=== PATIENT | female | born 1980 | race Caucasian/White ===

== ENCOUNTER 2017-03-05 05:17 | Observation (INO) ==
[2017-03-05] MEDS ORDERED: Ringers Solution, Lactated 1,000 ML IVC ONE (05:25)
[2017-03-05] MEDS ORDERED: Ringers Solution, Lactated 1,000 ML IVC SCH (05:30)
--- NOTE | 2017-03-05 05:41 | OB/GYN Progress Note ---
Date of Encounter: 03/05/17 Time of Encounter: 05:29 - Assessment and Plan (1) Vaginal bleeding during , antepartum Current Visit: Yes Status: Acute Plan: - CBC and fibrinogen - 1 L bolus of LR - Celestone 12mg IV once - PIH labs as patient's BP mildly elevated - [facility] accepted [facility] for vaginal bleeding at 23 weeks gestation. Will transfer in an ALS ambulance (2) 23 weeks gestation of Current Visit: Yes Status: Acute (3) History of 3 sections Current Visit: Yes Status: Acute plans for CS for delivery (4) Obesity complicating in second trimester Current Visit: Yes Status: Acute (5) Tobacco use affecting in second trimester, antepartum Current Visit: Yes Status: Acute (6) Previous child with cardiac abnormality, antepartum Current Visit: Yes Status: Acute (7) Chronic benign essential hypertension in second trimester Current Visit: Yes Status: Acute not on medications. Will order PIH labs as mildly elevated. Subjective - Subjective Principal diagnosis: vaginal bleeding Interval history: Patient is a 36 y/o at 23+3 weeks presented to L&D with painless vaginal bleeding. Patient states that bleeding began about 5 minutes before she called the squad. She has had some spotting previously during this but no gushes of blood. US showed placenta right side wall. Denies CHÁVEZ, fevers, chills, abdominal pain, changes in vision, dizziness. Patient denies recent intercourse or strenuous activity. Patient had good heart tones yesterday. Admits to some cramping but no gush of fluid. Patient has had acute sinusitis of which she just finished a course of Azithromycin. complicated by obesity, tobacco use, repeat x3, advance maternal age, chronic HTN, and hx of child with cardiac defect. PNL: .Blood type O+, RPR neg, RI, HBSAg neg, HIV neg Total pregnancies 3. Total living children 2. # 1: 1998,, Primary , Male, 6 lbs 3 oz. Full Term, Ata. # 2: 2007, Male, Repeat , 7 lbs 2 oz, Full Term, Gurdeep. # 3 2009, Full term, 5 lbs 3 oz, Female, , Repeat , , [place] , baby 1 hour after due to a hole in her heart. Antepartum ROS: vaginal bleeding Objective - Vital Signs Vital Signs: BP: 143/79, HR83 BP: 154/80 repeat - Exam FHR: category 1 FHR comments: FHR baseline = 150. Reassuring, accelerations with variability. Auscultation: bilateral: normal Abdomen: Present: normal appearance, soft Uterus: Present: normal Comments: blood present on medial aspect of thighs and peritoneal area and pooling underneath her
[2017-03-05] MEDS ORDERED: Betamethasone Acet/SodPhos 6 MG/ML MDV IM SCH (06:00)
--- NOTE | 2017-03-05 06:17 | OB/GYN History & Physical ---
Date of Encounter: 03/05/17 Time of Encounter: 06:16 Assessment and Plan (1) 23 weeks gestation of Current visit: Yes Status: Acute (2) Chronic benign essential hypertension in second trimester Current visit: Yes Status: Acute (3) History of 3 sections Current visit: Yes Status: Acute (4) Obesity complicating in second trimester Current visit: Yes Status: Acute (5) Previous child with cardiac abnormality, antepartum Current visit: Yes Status: Acute (6) Tobacco use affecting in second trimester, antepartum Current visit: Yes Status: Acute (7) Vaginal bleeding during , antepartum Current visit: Yes Status: Acute Significant amount of bleeding on initial exam. 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 FHT reassuring for GA, baseline 150 with moderate variability. IV fluid bolus given. CBC, fibrinogen, and PIH labs collected. Celestone administered. Plan to transfer to [facility] L&D for further evaluation- accepting physician Annie Miranda, ROMULO fellow. History of Present Illness Chief complaint: bleeding HPI: Ms. Marquez is a 36 year old female at 23+3 weeks presented to L&D with painless vaginal bleeding. Patient states that bleeding began about 5 minutes before she called the squad. She has had some spotting previously during this but no gushes of blood. US with MFM showed placenta right side wall but pt was told she has a placenta previa. Denies CHÁVEZ, fevers, chills, abdominal pain, changes in vision, dizziness. Patient denies recent intercourse or strenuous activity. Patient had good heart tones yesterday when she had a echocardiogram which she was told is normal. Admits to some cramping but contractions or gushes of fluid. Patient has had acute sinusitis of which she just finished a course of Azithromycin. complicated by obesity, tobacco use, repeat x3, advance maternal age, chronic HTN, and hx of child with cardiac defect that shortly after . PNL: .Blood type O+, RPR neg, RI, HBSAg neg, HIV neg Total pregnancies 3. Total living children 2. # 1: 1998,, Primary , Male, 6 lbs 3 oz. Full Term, Ata. # 2: 2007, Male, Repeat , 7 lbs 2 oz, Full Term, Gurdeep. # 3 2009, Full term, 5 lbs 3 oz, Female, , Repeat , , [place] , baby 1 hour after due to a hole in her heart. Past Med Surg Social Fam HX - Past Medical History Medical history: other Psychiatric history: no psych history - Past Surgical History Surgical History: - Social History Smoking Status: Current every day smoker Packs per day: 1/2 pack Smokeless Tobacco Status: No Alcohol use: none Drug use: none - Family History Mother Living Status: Hx Family Cardiac Disorders: Yes (HTN, heart failur) Hx Family Respiratory Disorders: Yes Hx Family Endocrine Disorder: Yes (Diabetes) Obstetrical History - Pregnancies : 5 Para: 3 Term: 3 : 0 Ab's: 0 Livin Medications and Allergies Pnv No.115/Iron Fumarate/FA [ 19 Chewable Tablet] 1 each PO DAILY #90 tab.chew 10/30/16 [Rx] Azithromycin 1 gm PO 03/05/17 [History] 3 Allergy/AdvReac Type Severity Reaction Status Date / Time No Known Allergies Allergy Verified 03/05/17 05:42 Review of System OB All systems PM: reviewed and no additional remarkable complaints except as stated Exam - Constitutional Constitutional: well developed, well nourished, mild distress, obese - HEENT HEENT: Mucus Membranes Moist - Lungs Respiratory exam: CTAB - Cardiovascular Cardiovascular exam: RRR, +S1 - Abdomen Abdomen: Present: gravid, non tender - Extremities Extremities exam: normal inspection - Vulva Vulva: bilateral: normal (blood noted on inner thighs, active trickle) Results All other labs normal. - VTE Reasons for not Prescribing Prophylaxis: Treatment not Indicated - Low risk for VTE
[2017-03-05 06:54] LABS: Basophils # 0.1 K/mcL (0.0-0.2); Basophils % 0.3 %; Eosinophils # 0.2 K/mcL (0.0-0.6); Eosinophils % 1.4 %; Hematocrit 36.1 % (35.3-44.9); Hemoglobin 12.3 g/dL (11.5-15.4); Immature Granulocytes % 0.6 % (0-4); Immature Platelets 4.5 % (1.1-6.1); Mean Corpuscular HGB Conc 34.1 g/dL (31.6-35.5); Mean Corpuscular Hemoglobin 29.9 pg (28.0-33.3); Mean Corpuscular Volume 87.6 fL (83.0-100.0); Mean Platelet Volume 9.9 fL (9.4-12.4); Monocytes # 1.1 K/mcL (0.0-1.3); Monocytes % 7.1 %; Neutrophils # 11.3 K/mcL (1.6-8.9); Platelet Count 316 K/mcL (140-400); Red Blood Count 4.12 M/mcL (3.82-4.97); Red Cell Distribution Width 12.9 % (11.5-14.5); Segmented Neutrophils % 71.6 %
[2017-03-05 07:06] LABS: Alanine Aminotransferase 8 Units/L (7-52); Aspartate Amino Transferase 9 Units/L (13-39); BUN/Creatinine Ratio 9 (6-26); Blood Urea Nitrogen 4 mg/dL (6-20); Lactate Dehydrogenase 127 Units/L (140-271); eGFR For African Americans > 60 (> 60); eGFR For Non-African Americans > 60 (> 60)
== END 2017-03-05 06:44 | disposition other institution (70) ==
LOC: 1NENULAB
PROVIDERS: ADMIT Registered Nurse; ATTEND Registered Nurse

== ENCOUNTER 2017-09-23 23:45 | Observation (INO) ==
[2017-09-24] MEDS ORDERED: 0.9 % Sodium Chloride 1,000 ML ONE (03:50)
[2017-09-24] MEDS ORDERED: Ringers Solution, Lactated 1,000 ML ONE (05:07)
[2017-09-24] MEDS ORDERED: Acetaminophen/Aspirin/Caffeine TABLET PO ONE (11:45)
--- NOTE | 2017-09-24 12:26 | Urology - Consult Note ---
Date of Encounter: 09/24/17 Time of Encounter: 12:24 - Assessment and Plan (1) Obstruction of right ureteropelvic junction (UPJ) due to stone Current Visit: Yes Status: Acute Assessment and plan: Patient be taken to the operative room today for cystoscopy and right ureteral stent placement. (2) Acute cystitis without hematuria Current Visit: Yes Status: Acute Assessment and plan: broad-spectrum antibiotics until cultures return (3) Nausea without vomiting Current Visit: Yes Status: Acute Assessment and plan: IV nausea medication (4) Hydronephrosis, right Current Visit: Yes Status: Acute Assessment and plan: Will resolve with stent placement Urology CN:HPI Consult date: 09/24/17 Reason for consult Urology: Hydronephrosis Requesting physician: Clay Gomez History of present illness: Melba is a 36-year-old female with a history of being recently admitted from the emergency room secondary to severe right-sided flank pain. Patient was found to have a large 8-9 mm right UPJ stone with significant hydronephrosis proximal to this. Patient also with a nitrite positive urinalysis. Slightly elevated WBC count. Positive low-grade fevers. Positive nausea without vomiting. Patient is currently with good pain control. Past Med Surg Social Fam HX - Past Medical History Medical history: kidney stones, other Additional medical history: PIH Psychiatric history: anxiety, depression - Past Surgical History Surgical History: - Social History Smoking Status: Current every day smoker Smokeless Tobacco Status: No Alcohol use: none Drug use: none - Family History Mother Living Status: Hx Family Cardiac Disorders: Yes (HTN, heart failur) Hx Family Respiratory Disorders: Yes Hx Family Endocrine Disorder: Yes (Diabetes) Medications and Allergies Pnv No.115/Iron Fumarate/FA [ 19 Chewable Tablet] 1 each PO DAILY #90 tab.chew 10/30/16 [Rx] Azithromycin 1 gm PO 03/05/17 [History] 3 Allergy/AdvReac Type Severity Reaction Status Date / Time No Known Allergies Allergy Verified 09/23/17 23:52 Review of Systems - Constitutional chills, fever(s) - EENT Nose, mouth and throat: no dizziness, no headache(s) - Cardiovascular no chest pain - Respiratory no cough - Gastrointestinal abdominal pain, nausea, no vomiting - Genitourinary Genitourinary: no difficulty voiding, no nocturia - Musculoskeletal back pain - Integumentary no erythema, no swelling - Neurological no confusion - Psychiatric no anxiety - Hematologic/Lymphatic no easy bleeding, no lymphadenopathy - Allergic/Immunologic no throat swelling, no wheezing Exam Initial Vital Signs Temp Pulse Resp BP Pulse Ox 99.3 F 103 16 134/84 97 09/23/17 23:47 09/23/17 23:47 09/23/17 23:47 09/23/17 23:47 09/23/17 23:47 General/Neuological: alert and oriented x 3 Eyes: normal pupils, non-icteric Neck: no lymphadenopathy noted, supple to touch Cardiovascular: RRR, no murmurs Respiratory: normal respiratory effort, clear bilaterally ABD: soft, nontender, no masses palpated, good bowel sounds Back: no pain on percussion bilaterally, spine straight on exam and nontender Skin: no rashes noted Musculoskeletal: normal gait, FROMx4 Urology Results - Labs Abnormal lab results POC Glucose 107 mg/dL (70-99) H 09/24/17 12:07 All other labs normal. - Imaging CT scan - abdomen: image reviewed CT scan - pelvis: image reviewed Consult Discharge Plan - Plan Referrals: Malik Lagunas, NEWSPAPER MANAGER [Primary Care Provider] -
[2017-09-24] MEDS ORDERED: 0.9 % Sodium Chloride w KCl 20 MEQ/1,000 ML MLS IVC SCH ×2 (13:45→18:47)
[2017-09-24 14:46] LABS: Basophils % 0.2 %; Eosinophils % 0.1 %; Hematocrit 36.8 % (35.3-44.9); Hemoglobin 12.6 g/dL (11.5-15.4); Immature Granulocytes % 0.7 % (0-4); Immature Platelets 3.2 % (1.1-6.1); Lymphocytes # 1.4 K/mcL (0.6-4.6); Lymphocytes % 5.5 %; Mean Corpuscular HGB Conc 34.2 g/dL (31.6-35.5); Mean Corpuscular Hemoglobin 28.5 pg (28.0-33.3); Mean Corpuscular Volume 83.3 fL (83.0-100.0); Mean Platelet Volume 9.7 fL (9.4-12.4); Monocytes # 1.6 K/mcL (0.0-1.3); Monocytes % 6.2 %; Platelet Count 312 K/mcL (140-400); Red Blood Count 4.42 M/mcL (3.82-4.97); Red Cell Distribution Width 14.6 % (11.5-14.5); Segmented Neutrophils % 87.3 %
[2017-09-24 14:47] LABS: Basophils # 0.1 K/mcL (0.0-0.2)
[2017-09-24 14:48] LABS: Platelet Estimate Normal (Normal)
[2017-09-24 14:59] LABS: Activated Partial Thrombo Time 32.9 Seconds (26.0-36.0); INR 1.3; Prothrombin Time 15.1 Seconds (9.4-12.1)
[2017-09-24 15:18] LABS: BUN/Creatinine Ratio 14 (6-26); Blood Urea Nitrogen 15 mg/dL (6-20); Calcium 8.6 mg/dL (8.6-10.3); Carbon Dioxide 19 mEq/L (23-29); Chloride 106 mEq/L (98-107); Glucose 109 mg/dL (70-105); Osmolality,Calculated 277 (280-300); Potassium 3.5 mEq/L (3.5-5.1); Sodium 133 mEq/L (136-145); eGFR For African Americans > 60 (> 60); eGFR For Non-African Americans 56 (> 60)
[2017-09-24] MEDS ORDERED: Albuterol 2.5 MG/3 ML NEBULIZER ONE (16:07)
[2017-09-24] MEDS ORDERED: Albuterol 2.5 MG/3 ML NEBULIZER IH ONE (16:08)
[2017-09-24] MEDS ORDERED: Lidocaine -MPF 2% 2 ML VIAL ONE (16:32)
[2017-09-24] MEDS ORDERED: Lidocaine -MPF 4% 5 ML AMPUL ONE (16:32)
[2017-09-24] MEDS ORDERED: Dexamethasone 4 MG/ML VIAL ONE (16:32)
[2017-09-24] MEDS ORDERED: Ondansetron 4 MG/2 ML VIAL ONE (16:32)
[2017-09-24] MEDS ORDERED: *HR* Midazolam HCl 2 MG/2 ML VIAL ONE (16:32)
[2017-09-24] MEDS ORDERED: *HR* Propofol 200 MG/20 ML VIAL IVP ONE (16:32)
[2017-09-24] MEDS ORDERED: *HR* FentaNYL (PF) 100 MCG/2 ML VIAL ONE ×2 (16:32→17:02)
--- NOTE | 2017-09-24 16:35 | Anesthesia Evaluation PreOp ---
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) Other Medical History: GERD, Other (Obesity, BMI 47) : No Test: Negative Alcohol Use: none Drug use: none Medications and Allergies Pnv No.115/Iron Fumarate/FA [ 19 Chewable Tablet] 1 each PO DAILY #90 tab.chew 10/30/16 [Rx] Azithromycin 1 gm PO 03/05/17 [History] 3 Allergy/AdvReac Type Severity Reaction Status Date / Time No Known Allergies Allergy Verified 09/23/17 23:52 - Meds/Allergy Pre-op Review Medications Reviewed: Yes Allergies Reviewed: Yes Beta Blockers on Current Med List: No Anesthesia Results - Labs 09/24/17 04:00 09/24/17 04:00 Laboratory Tests 09/23/17 16:40 Urine Test Negative Anesthesia Exam Vital Signs/O2 Sat, Most Current Temp Pulse Resp BP Pulse Ox 99.0 F 67 16 100/70 95 09/24/17 14:57 09/24/17 14:57 09/24/17 14:57 09/24/17 14:57 09/24/17 14:59 Height: 1.55 m Weight: 113 kg NPO (# of Hours): 8 - HEENT Pupil (Motor): Pupils equal Mallampati: II Teeth: Poor dentition Oral Opening: Greater than 3 - Cardiac Rhythm: Regular - Pulmonary Breath Sounds: bilateral Clear Respiratory Effort: Symmetrical Anesthesia Assess/Plan ASA Score: 2 Modified [place] Scale for Level of Consciousness: Cooperative, oriented, and tranquil Anesthetic Plan: General Monitoring Plan: Standard Monitors Recovery Plan: PACU
[2017-09-24] MEDS ORDERED: ceFAZolin sodium 3,000 MG in 0.9 % Sodium Chloride 100 ML IVPB ONE (16:52)
--- NOTE | 2017-09-24 17:13 | Operative Note ---
Date of procedure: 09/24/17 Pre-op diagnosis: right upj stone with uti Post-op diagnosis: same Procedure: Cystoscopy and right 4.8 x 24 cm ureteral stent placement Anesthesia: GETA Surgeon: Oswaldo Giordano Was there an outpatient physical therapist assistant present: No Estimated blood loss (cc): 0 Specimen: none Condition: stable Disposition: PACU Procedure in Detail: Patient was prepped and draped in normal sterile fashion. Timeout procedure performed. I then inserted the cystoscope into the patient's bladder. I was able to cannulate the right ureteral orifice and place the wire into the right renal pelvis using fluoroscopy. I then placed a 4.8 x 24 cm stent with good curl seen in the right kidney and in the bladder. Bladder was drained and procedure was ended.
[2017-09-24] MEDS ORDERED: Ondansetron 4 MG/2 ML VIAL IVP ONE (17:25)
--- NOTE | 2017-09-24 17:35 | Anesthesia Evaluation Post Op ---
Date of Encounter: 09/24/17 Time of Encounter: 17:34 - Vital Signs Vital Signs: Vital Signs/O2 Sat, Most Current Temp Pulse Resp BP Pulse Ox 97.8 F 86 20 119/57 99 09/24/17 17:16 09/24/17 17:26 09/24/17 17:26 09/24/17 17:26 09/24/17 17:26 - Lungs Lungs: Clear Ascult./Percussion - Airway Airway: Non-obstructed - Cardiovascular Regular Rate - Mental Status Mental Status: Alert & Oriented, Answers Appropriately - Pain Pain Scale: 0 - Nausea Vomiting Nausea Vomiting: Not Present - Hydration Hydration: Ice chips, Has not voided - Discharge PostOp Status: Transfer Patient to floor
[2017-09-24] MEDS ORDERED: CeFAZolin Syr 3,000MG/30 ML 3,000 MG/30 ML SYRINGE IVPB ONE (18:00)
[2017-09-24] MEDS ORDERED: *HR* HYDROcodone/Acet 5/325 mg TABLET PO PRN (18:47)
[2017-09-24] MEDS ORDERED: Naloxone 0.4 MG/ML INJ IVP PRN (18:47)
[2017-09-24] MEDS ORDERED: Ondansetron 4 MG/2 ML VIAL IVP PRN (18:47)
[2017-09-24] MEDS ORDERED: 0.9 % Sodium Chloride 1,000 ML IVC SCH (18:47)
--- NOTE | 2017-09-24 20:54 | Internal Med Progress Note ---
Date of Encounter: 09/24/17 Time of Encounter: 20:54 - Assessment and plan (1) Obstruction of right ureteropelvic junction (UPJ) due to stone Status: Acute (2) Hydronephrosis, right Status: Acute (3) Acute cystitis without hematuria Status: Acute - Time Spent With Patient Total time spent is greater than 50% in coordination of care (as documented) at patient's floor/unit and/or counseling patient: 25 - 35 minutes - Subjective Interval history: .. I saw this patient after right ureteral stent placement. Her right-sided flank pain nearly subsided. Denies nausea and vomiting. She makes good amounts of urine. Denies chest pain. Denies difficulty breathing, coughing and wheezing. She has good appetite. OBJECTIVE: .. Skin: Free of rash and discoloration. Respiratory: Normal breath sounds; no crackles or wheezes. CV: Heart is regular; no gallop or murmur. GI: Abdomen is soft and not tender. There is no palpable mass or visceromegaly. Neuro: There is no focal deficits. ASSESSMENT AND PLAN: .. Obstruction of right ureteropelvic junction due to stone. Resulting in right- sided hydronephrosis. A stent was put into that area by urology today. We will observe her for the next 12 nhan 24 hour. Will continue when necessary [place] and when necessary Zofran. Urinary tract infectionacute cystitis without hematuria. We will keep her on IV Rocephin. Her disposition: Tentative discharge is tomorrow a.m. - Constitutional Vitals: Temp Pulse Resp BP Pulse Ox 98.3 F 86 16 133/77 99 09/24/17 19:00 09/24/17 19:00 09/24/17 19:00 09/24/17 19:00 09/24/17 19:00 Internal Medicine: Result - Labs CBC & Chem 7: 09/25/17 07:48 09/25/17 07:48 - ABG Interpretation ABG results: PT/INR, D-dimer PT 15.1 Seconds (9.4-12.1) H 09/24/17 04:00 Consult Discharge Plan - Plan Referrals: Oswaldo Giordano MD [Partnered Physician] - Malik Lagunas CNP [Primary Care Provider] - Prescriptions: Ciprofloxacin [Cipro] 500 mg PO Q12HR #14 tablet
[2017-09-24 23:05] LABS: Amphetamine Screen,Urine Negative ng/mL (Cutoff=1000); Barbiturate Screen,Urine Negative ng/mL (Cutoff=200); Benzodiazepines Screen,Urine Negative ng/mL (Cutoff=200); Cannabinoid Screen,Urine Negative ng/mL (Cutoff = 50); Cocaine Screen,Urine Negative ng/mL (Cutoff= 300); Opiate Screen,Urine Negative ng/mL (Cutoff=300); Phencyclidine Screen,Urine Negative ng/mL (Cutoff=25)
[2017-09-25 00:21] VITALS: BP 115/65
[2017-09-25 08:13] LABS: Basophils % 0.1 %; Eosinophils % 0.1 %; Hematocrit 34.8 % (35.3-44.9); Immature Granulocytes % 1.4 % (0-4); Lymphocytes # 1.9 K/mcL (0.6-4.6); Lymphocytes % 7.9 %; Mean Corpuscular HGB Conc 34.2 g/dL (31.6-35.5); Mean Corpuscular Hemoglobin 28.4 pg (28.0-33.3); Mean Corpuscular Volume 83.1 fL (83.0-100.0); Mean Platelet Volume 10.2 fL (9.4-12.4); Monocytes # 1.9 K/mcL (0.0-1.3); Platelet Count 280 K/mcL (140-400); Red Blood Count 4.19 M/mcL (3.82-4.97); Red Cell Distribution Width 14.8 % (11.5-14.5); Segmented Neutrophils % 82.5 %
[2017-09-25 08:31] LABS: Hemoglobin 11.9 g/dL (11.5-15.4); Neutrophils # 19.5 K/mcL (1.6-8.9)
[2017-09-25 08:37] LABS: BUN/Creatinine Ratio 19 (6-26); Blood Urea Nitrogen 16 mg/dL (6-20); Calcium 8.7 mg/dL (8.6-10.3); Carbon Dioxide 19 mEq/L (23-29); Chloride 110 mEq/L (98-107); Glucose 147 mg/dL (70-105); Osmolality,Calculated 282 (280-300); Potassium 3.7 mEq/L (3.5-5.1); Sodium 134 mEq/L (136-145); eGFR For African Americans > 60 (> 60); eGFR For Non-African Americans > 60 (> 60)
[2017-09-25] MEDS ORDERED: cefTRIAXone 1,000 MG in Water for inj. (sterile) 20 ML 10 ML IVP SCH (09:00)
--- NOTE | 2017-09-25 10:03 | Urology Progress Note ---
Date of Encounter: 09/25/17 Time of Encounter: 10:02 - Assessment and Plan (1) Obstruction of right ureteropelvic junction (UPJ) due to stone Current Visit: Yes Status: Acute Assessment and plan: Status post right ureteral stent. Patient feeling better. (2) Acute cystitis without hematuria Current Visit: Yes Status: Acute Assessment and plan: recommended 1 week course of Cipro. Cultures still pending. (3) Nausea without vomiting Current Visit: Yes Status: Acute (4) Hydronephrosis, right Current Visit: Yes Status: Acute Progress Note Narrative: Patient seen this morning. Feeling well. No fevers overnight. WBC count improved but still elevated. Objective Initial Vital Signs Temp Pulse Resp BP Pulse Ox 99.3 F 103 16 134/84 97 09/23/17 23:47 09/23/17 23:47 09/23/17 23:47 09/23/17 23:47 09/23/17 23:47 - General physical appearance Present: well developed, well nourished - Respiratory Present: normal expansion, normal respiratory effort - Abdomen Present: soft. Absent: tender - Integumentary Present: no rash - Labs 09/25/17 07:48 09/25/17 07:48 Diabetes panel 09/25/17 Range/Units 07:48 Sodium 134 L (136-145) mEq/L Potassium 3.7 (3.5-5.1) mEq/L Chloride 110 H (98-107) mEq/L Carbon Dioxide 19 L (23-29) mEq/L BUN 16 (6-20) mg/dL Creatinine 0.84 (0.60-1.20) mg/dL Glucose 147 H (70-105) mg/dL Calcium 8.7 (8.6-10.3) mg/dL Calcium panel 09/25/17 Range/Units 07:48 Calcium 8.7 (8.6-10.3) mg/dL Pituitary panel 09/25/17 Range/Units 07:48 Sodium 134 L (136-145) mEq/L Potassium 3.7 (3.5-5.1) mEq/L Chloride 110 H (98-107) mEq/L Carbon Dioxide 19 L (23-29) mEq/L BUN 16 (6-20) mg/dL Creatinine 0.84 (0.60-1.20) mg/dL Glucose 147 H (70-105) mg/dL Calcium 8.7 (8.6-10.3) mg/dL Adrenal panel 09/25/17 Range/Units 07:48 Sodium 134 L (136-145) mEq/L Potassium 3.7 (3.5-5.1) mEq/L Chloride 110 H (98-107) mEq/L Carbon Dioxide 19 L (23-29) mEq/L BUN 16 (6-20) mg/dL Creatinine 0.84 (0.60-1.20) mg/dL Glucose 147 H (70-105) mg/dL Calcium 8.7 (8.6-10.3) mg/dL - VTE Documentation of Mechanical Device: Intermittent pneumatic compression device Consult Discharge Plan - Plan Referrals: Oswaldo Giordano MD [Partnered Physician] - Malik Lagunas CNP [Primary Care Provider] -
--- NOTE | 2017-09-25 10:07 | Discharge Summary ---
- NOTES TO OUTPATIENT PROVIDER Notes to Outpatient Provider: The patient needs a right kidney stone removed. They will be calling her with an appointment for the surgery. She has a right ureteral stent inserted. Orders not resulted at time of discharge: Pending orders 09/24/17 04:00 Culture,Urine [RM] Routine Date of Encounter: 09/25/17 Time of Encounter: 10:05 - Discharge Diagnosis (1) Obstruction of right ureteropelvic junction (UPJ) due to stone Priority: Primary Status: Acute (2) Acute cystitis without hematuria Priority: Primary Status: Acute Hospital course: Ms. Marquez is a 36 year old female. The patient was admitted to the hospital with severe right-sided flank pain. She was found to have a large 89 mm right UPJ stone with significant hydronephrosis proximal to this. Her urine was positive for nitrites. She had elevated WBC. The patient was presented to urology. They proceeded with right- sided ureteral stent insertion. They will remove her right kidney stone later in outpatient settings. The patient feels good. Her right flank pain subsided. Denies nausea and vomiting. She makes good amounts of urine. I am discharging her home. She will be taking Cipro 500 mg by mouth twice a day for 7 days. Discharge discussed with: patient, nurse, medical cost consultant - Time Spent with Patient Total time spent providing and/or coordinating discharge services: Less than 30 minutes - Discharge Medications Prescriptions: Ciprofloxacin [Cipro] 500 mg PO Q12HR #14 tablet Home Medications: Ciprofloxacin [Cipro] 500 mg PO Q12HR #14 tablet 09/25/17 [Rx] Allergies/Adverse Reactions: 3 Allergy/AdvReac Type Severity Reaction Status Date / Time No Known Allergies Allergy Verified 09/23/17 23:52 Date of admission: 09/24/17 12:21 Primary care physician: Malik Lagunas CNP Discharging clinician: Demian Ibarra Anticipated date of discharge: 09/25/17 - Constitutional Vitals: Temp Pulse Resp BP Pulse Ox 98.6 F 72 14 115/65 95 09/25/17 00:20 09/25/17 00:20 09/25/17 00:20 09/25/17 00:20 09/25/17 00:20 General appearance: Present: A&O X 3, no acute distress, answers questions appropriately - Respiratory Respiratory exam: Present: CTAB. Absent: accessory muscle use, rales, rhonchi, wheezes - Cardiovascular Cardiovascular exam: Present: RRR, +S1, +S2. Absent: diastolic murmur, gallop, rubs, systolic murmur - GI/Abdominal GI/Abdominal exam: Present: normal bowel sounds, soft, no peritoneal signs. Absent: distended, tenderness - Patient Status Disposition: Home, Self-Care Condition: Good Functional capacity at discharge: independent ambulation Overall status at discharge: patient is progressing back to baseline - Discharge Instructions Follow Up With: Oswaldo Giordano MD [Partnered Physician] - Malik Lagunas CNP [Primary Care Provider] - Forms: ED Satisfaction Letter, Work/School Release - Diet and Activity Activity: resume usual activities as tolerated Diet: advance to your usual diet - VTE Reasons for not Prescribing Prophylaxis: Treatment not Indicated - Low risk for VTE Documentation of Mechanical Device: Intermittent pneumatic compression device Deep Vein Thrombosis/Pulmonary Embolism Present on Admission: No
== END 2017-09-25 10:46 | disposition home or self-care (01) ==
LOC: 3ANU 23:45 → EMEROO 23:45 → SUATTDRO 09-24 12:21 → 3ANU 09-24 12:24
PROVIDERS: ADMIT Internal Medicine; ATTEND Internal Medicine